=== PATIENT | male | born 1990 | race Caucasian/White ===

== ENCOUNTER 2017-12-15 08:38 | Emergency (ER) | payer SELFPAY ==
[~2017-12-15] VITALS: Ht 165.1 cm; Wt 79.4 kg
[2017-12-15 08:53] VITALS: BP 139/82
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
[2017-12-15] MEDS ORDERED: NACL 0.9% 1,000 ML IV ONE (09:15)
[2017-12-15] MEDS ORDERED: diphenhydrAMINE 50 MG/ML VIAL IVP ONE (09:15)
[2017-12-15] MEDS ORDERED: METOCLOPRAMIDE 10 MG/2 ML INJ VIAL IVP ONE (09:15)
--- NOTE | 2017-12-15 09:16 | NUR ---
Patient being evaluated by physician at bedside.
[2017-12-15 10:21] VITALS: BP 130/76
== END 2017-12-15 10:20 | disposition home or self-care (01) ==
LOC: MED 08:38
DX: R51 Headache (principal); R50.9 Fever, unspecified
CPT/HCPCS: 96374; 96375; 99284; J1200; J2765